=== PATIENT | male | born 1960 | race Caucasian/White ===

== ENCOUNTER → 2020-08-09 11:08 | Outpatient (BNVA) | payer OTHER, SELFPAY | PROVIDERS: Visit Provider Physician Assistant | DX: Z76.89 Persons encountering health services in other specified circumstances (principal) ==

== ENCOUNTER 2020-09-20 08:32 | Outpatient (REF) | payer OTHER, SELFPAY ==
--- NOTE | 2020-09-20 08:36 | EMG_ITS ---
Bilateral median and ulnar motor and sensory studies were performed. Bilateral radial sensory studies were performed and paraspinal muscles were tested with a needle. IMPRESSION: 1. Moderately severe bilateral median neuropathy across carpal tunnel. 2. 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 MD ZOEY Wu/FABBY / [id number]
== END 2020-09-20 08:33 | disposition home or self-care (01) ==
LOC: HO.NEURO 08:32
PROVIDERS: Visit Provider Physician Assistant
DX: G56.03 Carpal tunnel syndrome, bilateral upper limbs (principal); R20.0 Anesthesia of skin; R20.2 Paresthesia of skin
CPT/HCPCS: 95886; 95911

== ENCOUNTER → 2020-10-05 10:48 | Outpatient (BNVA) | payer OTHER, SELFPAY | PROVIDERS: Visit Provider Physician Assistant | DX: G56.01 Carpal tunnel syndrome, right upper limb (principal); G56.02 Carpal tunnel syndrome, left upper limb | CPT/HCPCS: 99212 ==

== ENCOUNTER 2020-11-01 10:06 | Day surgery (SDC) | payer OTHER, SELFPAY ==
[2020-10-26 14:06] VITALS: BMI 31.3
--- NOTE | 2020-10-31 11:04 | HO.ANESPROP2 ---
Documented by User: Yaz Lagunas 10/31/20 11:05 HPI - Anesthesia Eval Consult details Narrative: 60yo M for L Carpal Tunnel Release PMFSH Active Problems Active Problems: All Active Problems (Updated 10/26/20 @ 13:58 by Kyara Dutton) Carpal tunnel syndrome on left (Acute) Carpal tunnel syndrome on right (Acute) Past Medical History Medical History (Updated 10/31/20 @ 11:05 by Yaz Lagunas) Diabetes HTN (hypertension) Hx of Hodgkin's disease Hypercholesterolemia Surgical History Surgical History (Updated 10/26/20 @ 13:57 by Kyara Dutton) History of bilateral carpal tunnel release History of biopsy History of total hip arthroplasty History of total knee arthroplasty Hx of colonoscopy Hx of left knee surgery Hx of tracheostomy Social History Social History (Reviewed 10/05/20 @ 10:51 by Teresita Grimes [facility]) Are you a primary child day care center worker to a significant other at home: No Do you presently have visiting nurse or other home services: No Alcohol intake: current Alcohol intake frequency: a few times a month Smoking Status: Never smoker Use of substances other than those prescribed or required for medical reasons: No Have you been hit, kicked, punched, or otherwise hurt by someone within the past year? If so, by whom?: No Advance Directives: No Advance Directives Information Provided: No Advance Directives on File: No Recently lost weight without trying: No Current occupational status: employed Current occupation: rt handed route delivery supervisor [employer] Meds Allergies Allergy/AdvReac Type Severity Reaction Status Date / Time No Known Allergies Allergy Verified 10/26/20 13:58 [No Known Allergies*] Home Medications Medication Instructions Recorded Confirmed Last Taken Type amlodipine 1 tab PO DAILY 10/26/20 10/26/20 11/01/20 08:00 History atorvastatin 20 tab PO DAILY 10/26/20 10/26/20 Unknown History cholecalciferol (vitamin D3) 1 cap PO DAILY 10/26/20 10/26/20 Unknown History lisinopril 1 tab PO DAILY 10/26/20 10/26/20 Unknown History metformin 1 tab PO BID 10/26/20 10/26/20 Unknown History Exam Exam Date and Time: October 31, 2020 1104 Height,Weight and Vital Signs: Height 5 ft 7 in Weight 90.718 kg Assessment and Plan Assessment Anesthesia Assessment: Chart Reviewed Documented by User: Alvino Womack MD 11/01/20 13:26 PMF Past Medical History Medical History (Updated 10/31/20 @ 11:05 by Yaz Lagunas) Diabetes HTN (hypertension) Hx of Hodgkin's disease Hypercholesterolemia Surgical History Surgical History (Updated 10/26/20 @ 13:57 by Kyara Dutton) History of bilateral carpal tunnel release History of biopsy History of total hip arthroplasty History of total knee arthroplasty Hx of colonoscopy Hx of left knee surgery Hx of tracheostomy Social History Social History Are you a primary child day care center worker to a significant other at home: No Do you presently have visiting nurse or other home services: No Alcohol intake: current Alcohol intake frequency: a few times a month Smoking Status: Never smoker Use of substances other than those prescribed or required for medical reasons: No Have you been hit, kicked, punched, or otherwise hurt by someone within the past year? If so, by whom?: No Advance Directives: No Advance Directives Information Provided: No Advance Directives on File: No Recently lost weight without trying: No Current occupational status: employed Current occupation: rt handed route delivery supervisor Rentabilities Meds Allergies Allergy/AdvReac Type Severity Reaction Status Date / Time No Known Allergies Allergy Verified 10/26/20 13:58 [No Known Allergies*] Home Medications Medication Instructions Recorded Confirmed Last Taken Type amlodipine 1 tab PO DAILY 10/26/20 10/26/20 11/01/20 08:00 History atorvastatin 20 tab PO DAILY 10/26/20 10/26/20 Unknown History cholecalciferol (vitamin D3) 1 cap PO DAILY 10/26/20 10/26/20 Unknown History lisinopril 1 tab PO DAILY 10/26/20 10/26/20 Unknown History metformin 1 tab PO BID 10/26/20 10/26/20 Unknown History Exam Airway Mallampati Class: II TM Dist: >3cm Neck ROM: Full Loose/Missing/Broken Teeth: Yes (Bridge) Heart: RRR Lungs: NL Assessment and Plan Assessment Anesthesia Assessment: Anesthesia Plan Discussed, Smoking Cess. Discussed and Chart Reviewed Final Anesthetic Review NPO: Yes ASA Class: III Final Preanesthetic Review: No Changes in Pt Med Stat, Meds/Allgs Chart Reviewed, Consent Obtained/Reviewed and Anes Risks/Benef Reviewed Patient Risk: Intermediate Procedure Risk: Low Anesthetic Plan Anesthetic Plan: GA Disposition: Standard PACU
--- NOTE | 2020-11-01 07:22 | MHC.SHP ---
Pre-Procedural Eval Section A The patient is an INPATIENT: No Changes since office visit: No Cold of Flu in the past 2 weeks, No New Medical Problems, No Changes in Medication and No Patient answered all questions The History & Physical has been completed within 30 days and I have reviewed it.: Yes Section B Chief Complaint: carpal syndrome Allergies: Allergies Allergy/AdvReac Type Severity Reaction Status Date / Time No Known Allergies Allergy Verified 10/26/20 13:58 [No Known Allergies*] Plan I have reviewed the history and physical and performed a pertinent physical examination on my patient. No changes have occurred unless specified.
[2020-11-01 10:44] VITALS: BP 154/79; PULSE 87; RESP 16; TEMP 37.1; O2SAT 100
[2020-11-01 10:58] LABS: Glucose, Whole Blood 125 mg/dL (60-115)
[2020-11-01] MEDS: Lactated Ringers 1,000 ML 100 ML IVCONT (10:58)
[2020-11-01 14:02] VITALS: BP 126/72; BP 129/68; PULSE 80; PULSE 90; RESP 18; RESP 20; TEMP 37.1; O2SAT 96; O2SAT 99
--- NOTE | 2020-11-01 14:02 | W.PM.OPN ---
Operative Note Operative Note Date of Service: 11/01/20 Narrative: OPERATIVE NOTE CARPAL TUNNEL SURGERY SURGEON: Dr Frances (Raina) instrum PREOP DIAGNOSIS: Left CARPAL TUNNEL SYNDROME POSTOP DIAGNOSIS: Same OPERATIVE PROCEDURE: Left TRANSVERSE CARPAL LIGAMENT RELEASE CLINICAL NOTE: This individual comes in today in regards to his wrist. He has had ongoing symptoms consistent with carpal tunnel syndrome. He had failed operative management. Therefore after explaining the risks benefits and alternatives and answering all his questions it was mutually agreed upon to carry out the following procedure. OPERATIVE DETAILS Under general anesthetic the patient was placed supine on the operating table with the arm out on a hand board. A pneumatic tourniquet cuff was placed around the upper arm and inflated to 250 mm of mercury at the beginning is the case after the arm had been Esmarched. Surgical time-out was then performed. Patient was identified. Procedure confirmed. Site confirmed. Medical and allergy history was reviewed. No preoperative antibiotics. Standard DVT prophylaxis. All other items were discussed and agreed upon. Standard 1 cm incision from the distal flexion crease in line with the 3rd webspace was made. It was sharply dissected through the subcutaneous tissues with hemostasis achieved along the way using electrocautery. The palmar fascia was then divided. This brought us to the transverse carpal ligament. This was sharply dissected. The nerve was identified. Using Metzenbaum scissors the soft tissues were released subcutaneously proximally. And distally using the carpal tunnel guide and knife it was released into the palm. At this point the nerve was fully free. And we proceeded closure. Wound was irrigated. It was infiltrated with 0.25% plain Marcaine 1 cc. The skin was then approximated using 2-0 Dexon. Dermabond, Steri-Strips, and sterile dressing were then applied. The tourniquet was let down total tourniquet time of 9 minutes. Patient's anesthesia was then reversed. They were transferred supine to the room bed then taken to recovery room in good condition. Intraoperatively there was no blood loss. No complications.
[2020-11-01 14:07] VITALS: BP 119/77; PULSE 88; RESP 18; O2SAT 97
[2020-11-01 14:17] VITALS: BP 123/75; PULSE 87; RESP 18
[2020-11-01 14:32] VITALS: BP 124/85; PULSE 82; RESP 17; TEMP 36.7; O2SAT 98
== END 2020-11-01 15:27 | disposition home or self-care (01) ==
PROVIDERS: Visit Provider Orthopaedic Surgery
PROC: (CPT 64721; principal; 2020-11-01 12:20)
DX: G56.02 Carpal tunnel syndrome, left upper limb (principal); I10 Essential (primary) hypertension; E11.9 Type 2 diabetes mellitus without complications; Z79.84 Long term (current) use of oral hypoglycemic drugs; Z79.899 Other long term (current) drug therapy; Z85.71 Personal history of Hodgkin lymphoma; Z96.641 Presence of right artificial hip joint; Z96.652 Presence of left artificial knee joint
CPT/HCPCS: 64721; 82947; J1100; J1885; J2405

== ENCOUNTER → 2020-11-14 10:25 | Outpatient (BNVA) | payer OTHER, SELFPAY | PROVIDERS: Visit Provider Physician Assistant | DX: G56.02 Carpal tunnel syndrome, left upper limb (principal) | CPT/HCPCS: 99212 ==